=== PATIENT | male | born 1935 | race Caucasian/White ===

== ENCOUNTER → 2016-06-13 | Outpatient (CLI) | payer OTHER ==
--- NOTE | 2016-06-13 12:51 | US ---
Renal Ultrasound June 13, 2016 Indication: 80 year-old man with benign prostatic hypertrophy, urinary retention, and reflux versus o bstructive uropathy. Comparison: Bladder ultrasound dated May 16, 2016. Findings: The urinary bladder contains a Joya catheter balloon and is completely decompressed. The p rostate gland is moderately enlarged measuring 5.7 x 5.0 x 5.1 cm with a total volume of 75 mL. Minimal left pelvocaliectasis. Normal right intrarenal collecting system. No shadowing renal calculi . Right Kidney: 11.6 cm in length x 5.6 x 5.3 cm. Cortical thickness: 1.4 cm. Left Kidney: 11.4 cm in length x 6.6 x 5.2 cm. Cortical thickness: 2.1 cm. Impression: 1. Minimal left pelvocaliectasis may be due to reflux uropathy versus narrowing of the ureteropelvic junction. 2. Normal right renal collecting system. 3. Empty urinary bladder containing Joya catheter balloon.
== END ==
LOC: CIMAGING 10:10
PROVIDERS: ATTEND Physician Assistant Medical
DX: N28.89 Other specified disorders of kidney and ureter (principal)
CPT/HCPCS: 76770-PO

== ENCOUNTER 2016-07-03 08:01 | Day surgery (SDC) | payer OTHER ==
[2016-07-03] MEDS ORDERED: PROPOFOL 200 MG/20 ML VIAL IVP ONE (08:05)
[2016-07-03] MEDS ORDERED: ETOMIDATE 20 MG/10 ML VIAL IVP ONE (08:05)
[2016-07-03] MEDS ORDERED: NS 500 ML IV ONE (08:05)
[2016-07-03] MEDS ORDERED: BENZOCAINE UNIT DOSE SPRAY HURRICAINE MM ONE (08:05)
[2016-07-03] MEDS ORDERED: MIDAZOLAM 2 MG/2 ML VIAL IVP ONE (08:05)
[2016-07-03] MEDS ORDERED: fentaNYL 100 MCG/2 ML INJ IVP ONE (08:05)
--- NOTE | 2016-07-03 08:24 | CPEKG ---
Heart Rate: 74 RR Interval: 811 QRSD Interval: 144 QT Interval: 468 QTC Interval: 520 QRS May: -82 T Wave May: 87 EKG Severity - ABNORMAL ECG - EKG Impression: AFIB/FLUT AND V-PACED COMPLEXES EKG Impression: LEFT BUNDLE BRANCH BLOCK Electronically Signed By: Mikie James 04-Jul-2016 19:22:59
[2016-07-03 09:15] LABS: CARBON DIOXIDE 25 mEq/l (22-31); CHLORIDE 102 mEq/L (97-110); GLOMERULAR FILTRATION RATE > 60; MAGNESIUM 1.6 mg/dL (1.6-2.3); POTASSIUM 4.6 mEq/L (3.5-5.2)
[2016-07-03 09:20] LABS: INR 1.42 (0.83-1.16); PROTIME(PATIENT) 17.3 SEC (12.0-15.0)
[2016-07-03 09:21] LABS: APTT 33.5 SEC (23.0-38.0)
[2016-07-03 09:31] LABS: ANION GAP 12 mEq/L (8-16); CALCIUM 9.4 mg/dL (8.5-10.4); GLUCOSE 347 mg/dL (70-100); SODIUM 139 mEq/L (134-144)
[2016-07-03] MEDS ORDERED: LIDOCAINE 2% 100 MG/5 ML SYR IVP ONE (09:35)
[2016-07-03] MEDS ORDERED: LIDOCAINE 2% 5 ML SDV ONE (09:36)
[2016-07-03] MEDS ORDERED: PROPOFOL 200 MG/20 ML VIAL ONE (09:36)
--- NOTE | 2016-07-03 10:21 | CPEKG ---
Heart Rate: 67 RR Interval: 896 P-R Interval: 192 QRSD Interval: 138 QT Interval: 444 QTC Interval: 469 QRS [place]: 49 T Wave [place]: -79 EKG Severity - ABNORMAL ECG - EKG Impression: ATRIAL-PACED COMPLEXES EKG Impression: VENTRICULAR PREMATURE COMPLEX EKG Impression: RIGHT BUNDLE BRANCH BLOCK EKG Impression: DRAMATIC AND DIFFUSE T WAVE ABNORMALITIES SEEN IN METABOLIC SYNDROMES EKG Impression: ELECTROLYTE DISORDERS AND HYPERTROPHY Electronically Signed By: Mikie James 04-Jul-2016 19:22:48
--- NOTE | 2016-07-03 10:48 | ECHO ---
[id number] + + [address] : : [facility] [address] : : [phone] + + Transesophageal Echocardiographic Report + -----+ :Name: LAUREN CONTRERAS PStudy Date: 07/03/2016 09:14 AM : : Hospital Admission Number: [id number] Location : [facility]: :: 1935 Gender: Male : :Age: 80 yrs Race: WH : :Reason For Study: Eval LV Fx : :History: Pre Cardioversion : + -----+ Doppler Measurements & Calculations MR max melany: 486.4 cm/sec TR max melany: 234.0 cm/sec MR max P.6 mmHg TR max P.9 mmHg RAP systole: 5.0 mmHg RVSP(TR): 26.9 mmHg Left Ventricle The left ventricular ejection fraction is normal. Atria Injection of contrast documented no interatrial shunt. The interatrial septum is intact with no evidence for an atrial septal defect. No thrombus is detected in the left atrial appendage. No left atrial mass or thrombus visualized. Mitral Valve There is moderate mitral regurgitation. Tricuspid Valve There is moderate tricuspid regurgitation. Aortic Valve The aortic valve is trileaflet. Moderate aortic regurgitation. There is an eccentric jet of aortic insufficiency directed against the anterior mitral leaflet. Pulmonic Valve The pulmonic valve is normal in structure and function. Vessels Mild atherosclerotic plaque(s) in the descending aorta. Procedure Informed consent obtained. Sedation was provided by Dr. Diana. KAROL probe was passed without difficulty. No complications. Conclusion A 2D transesophageal echocardiogram with color flow Doppler was performed. Informed consent obtained. Sedation was provided by Dr. Diana. KAROL probe was passed without difficulty. No complications. The left ventricular ejection fraction is normal. Injection of contrast documented no interatrial shunt. The interatrial septum is intact with no evidence for an atrial septal defect. No thrombus is detected in the left atrial appendage. No left atrial mass or thrombus visualized. There is moderate mitral regurgitation. There is moderate tricuspid regurgitation. The aortic valve is trileaflet. Moderate aortic regurgitation. There is an eccentric jet of aortic insufficiency directed against the anterior mitral leaflet. Mild atherosclerotic plaque(s) in the descending aorta. Proceeded with successful elective DC cardioversion. Final Reading Physician: Dr Mona Lewsi electronically signed on 07/03/2016 10:47 AM Ordering Physician: Mona Lewis Performed By: Dr Mona Lewis
--- NOTE | 2016-07-03 12:27 | CPIP ---
[f rep st] INVASIVE CARDIAC PROCEDURE DATE OF PROCEDURE: 07/03/2016 INDICATIONS: Atrial fibrillation. PROCEDURE: Transesophageal echocardiography-guided cardioversion. COMPLICATIONS: None. DESCRIPTION OF PROCEDURE: N.p.o. status was confirmed, informed consent obtained, and timeout perfor med. Pacemaker interrogation confirmed that the patient was in atrial fibrillation. Since he did tate ve a short interruption in Xarelto therapy in early May, we did elect to proceed with KAROL. Plea se see separate KAROL report. In summary, normal biventricular systolic function. Moderate mitral reg urgitation, moderate aortic regurgitation. No intracardiac thrombus. We proceeded with direct current cardioversion. This patient received a single synchronized 200 joul e shock, which converted him from atrial fibrillation to a sensed V paced rhythm. Pacemaker interrog ation was normal. 12-lead EKG is pending. CONCLUSION: Successful transesophageal echocardiography-guided cardioversion. Continue anticoagulat ion. Follow up with Dr. Simms as scheduled. Patient currently in stable condition. /[id number]/MODL
== END 2016-07-03 11:30 | disposition home or self-care (01) ==
LOC: FCATH 08:01
PROVIDERS: ATTEND Internal Medicine Cardiovascular Disease
PROC: 5A2204Z Restoration of Cardiac Rhythm, Single (ICD-10-PCS; principal; 2016-07-03)
PROC: B245ZZ4 Ultrasonography of Left Heart, Transesophageal (ICD-10-PCS; 2016-07-03)
DX: I48.2 Chronic atrial fibrillation (principal); I25.118 Atherosclerotic heart disease of native coronary artery with other forms of angina pectoris; Z95.5 Presence of coronary angioplasty implant and graft; Z95.0 Presence of cardiac pacemaker; Z79.01 Long term (current) use of anticoagulants; I50.9 Heart failure, unspecified; N40.1 Benign prostatic hyperplasia with lower urinary tract symptoms; E11.9 Type 2 diabetes mellitus without complications; Z86.73 Personal history of transient ischemic attack (TIA), and cerebral infarction without residual deficits
CPT/HCPCS: J2001; J2704

== ENCOUNTER 2016-07-23 21:14 | Inpatient (IN) | payer OTHER ==
--- NOTE | 2016-07-23 21:33 | EDPHY ---
H & P Time Seen by Provider: 07/23/16 21:33 HPI/ROS: CHIEF COMPLAINT: High blood sugar HISTORY OF PRESENT ILLNESS: Patient was the at Dr. Baez's office preop for urologic surgery. Had pyelonephritis in May and has dove. He was called at home because his blood sugar was high; Dr. Erazo asked him to come to the ED for evaluation. Patient is scheduled for prostate surgery in 9 days. Drinking more water but also increased dove catheter urine output. No vomiting or diarrhea or fever or chills. REVIEW OF SYSTEMS: Eye: no change in vision ENT: no sore throat Cardiac: no chest pain or syncope Pulmonary: no cough or SOB Abdomen: no vomiting, diarrhea, abdominal pain Musculoskeletal: no back pain Skin: no rash Neuro: no headache Constitutional: no fever : Indwelling catheter A comprehensive 10 point review of systems is otherwise negative aside from elements mentioned in the history of present illness. PAST MEDICAL HISTORY: Includes diabetes, atrial fibrillation on Xarelto, hypertension, coronary disease with my cardial infarction 2005. Prostatic hypertrophy Social history: Here with his daughter, moved from [place] 2 months ago, has not been exercising much as he usually did. General Appearance: Alert and conversant, cooperative. Eyes: No scleral icterus. ENT, Mouth: Normal mucous membranes. Respiratory: Normal respiratory effort, breath sounds equal, lungs are clear to auscultation. Cardiovascular: Regular rate and rhythm. Gastrointestinal: Abdomen is soft and non tender. Dove catheter in place. Neurological: Alert and oriented x3. Normally conversant. Face symmetric, normal movement and sensation in all extremities. Skin: Warm and dry, no rashes. Musculoskeletal: No peripheral edema and no joint swelling. Psychiatric: Not agitated. Emergency Department course/MDM: Labs drawn to include glucose and chemistry. 2127: Glucose resulted 938 but CO2 is 24. Insulin 10 units IV, normal saline 2 L IV, admit for glucose control. Discussed with Dr. Lamas at this time. Additional insulin 10 units IV. Repeat glucose 451 at 2338. Not in DKA. Critical care time spent by me, Dr. Lott, exclusively with the care of this patient was 30 minutes, exclusive of PA or [employer]EL[employer] time and exclusive of separate procedures. The organ system at risk was metabolic and I ordered IV insulin, IV normal saline, multiple diagnostic lab tests, discussion with admitting hospitalist; to stabilize the patient and prevent worsening of the patient's condition. Smoking Status: Never smoked Constitutional: Initial Vital Signs Temperature (C) 36.4 C 07/23/16 21:24 Heart Rate 60 07/23/16 21:24 Respiratory Rate 16 07/23/16 21:24 Blood Pressure 144/69 H 07/23/16 21:24 O2 Sat (%) 93 07/23/16 21:24 O2 Delivery Mode Room Air Allergies/Adverse Reactions: atenolol Allergy (Verified 07/23/16 21:22) Other-Enter Comments Home Medications: Medication Instructions Recorded Dronedarone HCl [Multaq 400 mg (*)] 400 mg PO BIDMEAL 05/15/16 Glimepiride [Amaryl] 4 mg PO DAILY 05/15/16 Rivaroxaban [Xarelto] 20 mg PO DAILY 05/15/16 Valsartan/Hydrochlorothiazide 1 tab PO DAILY 05/15/16 [Valsartan-Hctz 80-12.5 mg Tab] Atorvastatin Calcium [Lipitor 80 80 mg PO HS 05/16/16 mg] Cholecalciferol Vit D3 [Vitamin D3 1,000 units PO DAILY 05/16/16 (*)] Niacin [Niacin 500 mg (*)] 500 mg PO DAILY 05/16/16 metFORMIN HCL [Glucophage 500 mg 500 mg PO BIDMEAL 05/16/16 (*)] Medical Decision Making - Data Points Laboratory Results: Laboratory Results 07/23/16 21:40 07/23/16 21:40 07/23/16 07/23/16 07/23/16 22:25 21:40 21:40 WBC 5.36 10^3/uL 10^3/uL (3.80-9.50) RBC 3.72 10^6/uL L 10^6/uL (4.40-6.38) Hgb 11.5 g/dL L g/dL (13.7-17.5) POC Hgb Hct 34.8 % L % (40.0-51.0) POC Hct MCV 93.5 fL fL (81.5-99.8) MCH 30.9 pg pg (27.9-34.1) MCHC 33.0 g/dL g/dL (32.4-36.7) RDW 13.3 % % (11.5-15.2) Plt Count 231 10^3/uL 10^3/uL (150-400) MPV 11.5 fL fL (8.7-11.7) Neut % (Auto) 64.6 % % (39.3-74.2) Lymph % (Auto) 21.5 % % (15.0-45.0) [place] % (Auto) 11.2 % % (4.5-13.0) Eos % (Auto) 1.7 % % (0.6-7.6) Baso % (Auto) 0.6 % % (0.3-1.7) Nucleat RBC Rel Count 0.0 % % (0.0-0.2) Absolute Neuts (auto) 3.47 10^3/uL 10^3/uL (1.70-6.50) Absolute Lymphs (auto) 1.15 10^3/uL 10^3/uL (1.00-3.00) Absolute Monos (auto) 0.60 10^3/uL 10^3/uL (0.30-0.80) Absolute Eos (auto) 0.09 10^3/uL 10^3/uL (0.03-0.40) Absolute Basos (auto) 0.03 10^3/uL 10^3/uL (0.02-0.10) Absolute Nucleated RBC 0.00 10^3/uL 10^3/uL (0-0.01) Immature Gran % 0.4 % % (0.0-1.1) Immature Gran # 0.02 10^3/uL 10^3/uL (0.00-0.10) VBG pH 7.30 L (7.31-7.42) POC Sodium Sodium 127 mEq/L L mEq/L (134-144) POC Potassium Potassium 5.8 mEq/L H mEq/L (3.5-5.2) POC Chloride Chloride 90 mEq/L L mEq/L (97-110) Carbon Dioxide 24 mEq/l mEq/l (22-31) Anion Gap 13 mEq/L mEq/L (8-16) POC BUN BUN 38 mg/dL H mg/dL (7-23) Creatinine 1.6 mg/dL H mg/dL (0.7-1.3) POC Creatinine Estimated GFR 42 Glucose 938 mg/dL H* mg/dL (70-100) POC Glucose Calcium 9.6 mg/dL mg/dL (8.5-10.4) 07/23/16 21:36 WBC RBC Hgb POC Hgb 12.6 gm/dL L gm/dL (14.5-17.3) Hct POC Hct 37 % L % (42.8-50.6) MCV MCH MCHC RDW Plt Count MPV Neut % (Auto) Lymph % (Auto) [place] % (Auto) Eos % (Auto) Baso % (Auto) Nucleat RBC Rel Count Absolute Neuts (auto) Absolute Lymphs (auto) Absolute Monos (auto) Absolute Eos (auto) Absolute Basos (auto) Absolute Nucleated RBC Immature Gran % Immature Gran # VBG pH POC Sodium 127 mEq/L L mEq/L (134-144) Sodium POC Potassium 5.4 mEq/L H mEq/L (3.3-5.0) Potassium POC Chloride 89 mEq/L L mEq/L (96-108) Chloride Carbon Dioxide Anion Gap POC BUN 38 mg/dL H mg/dL (7-23) BUN Creatinine POC Creatinine 1.6 mg/dL H mg/dL (0.8-1.5) Estimated GFR Glucose POC Glucose > 700 mg/dL H* mg/dL (70-100) Calcium Medications Given: Discontinued Medications Sodium Chloride (Ns) 1,000 mls @ 0 mls/hr IV ONCE ONE PRN Reason: Wide Open Stop: 07/23/16 22:23 Last Admin: 07/23/16 22:35 Dose: 1,000 mls Sodium Chloride (Ns) 1,000 mls @ 0 mls/hr IV ONCE ONE PRN Reason: Wide Open Stop: 07/23/16 22:23 Last Admin: 07/23/16 22:35 Dose: 1,000 mls Insulin Human Regular (Humulin R) 10 unit IVP EDNOW ONE Stop: 07/23/16 22:23 Last Admin: 07/23/16 22:35 Dose: 10 unit Insulin Human Regular (Humulin R) 5 unit IVP ONCE ONE Stop: 07/23/16 23:49 Last Admin: 07/24/16 00:05 Dose: 5 unit Point of Care Test Results: 07/23/16 21:36 POC Sodium 127 L POC Potassium 5.4 H POC Chloride 89 L POC BUN 38 H POC Creatinine 1.6 H POC Glucose > 700 H* Departure - Departure Disposition: [facility] Acute Clinical Impression: Hyperglycemia Condition: Fair
[2016-07-23 21:54] LABS: % IMMATURE GRANULYOCYTES 0.4 % (0.0-1.1); ABSOLUTE IMMATURE GRANULOCYTES 0.02 10^3/uL (0.00-0.10); ADD DIFF? NO; ADD MORPH? NO; ADD SCAN? NO; ATYPICAL LYMPHOCYTE FLAG 10 (0-99); FRAGMENT RBC FLAG 0 (0-99); HEMATOCRIT 34.8 % (40.0-51.0); HEMOGLOBIN 11.5 g/dL (13.7-17.5); LEFT SHIFT FLG 0 (0-99); LIPEMIA HEMOLYSIS FLAG 80 (0-99); MEAN CELL HEMOGLOBIN 30.9 pg (27.9-34.1); MEAN CELL VOLUME 93.5 fL (81.5-99.8); MEAN PLATELET VOLUME 11.5 fL (8.7-11.7); PLATELET CLUMPS FLAG 0 (0-99); PLATELET COUNT 231 10^3/uL (150-400); RED BLOOD CELL COUNT 3.72 10^6/uL (4.40-6.38); RED CELL DISTRIBUTION WIDTH 13.3 % (11.5-15.2)
[2016-07-23 22:07] LABS: ANION GAP 13 mEq/L (8-16); CALCIUM 9.6 mg/dL (8.5-10.4); CARBON DIOXIDE 24 mEq/l (22-31); CHLORIDE 90 mEq/L (97-110); CREATININE 1.6 mg/dL (0.7-1.3); GLOMERULAR FILTRATION RATE 42; POTASSIUM 5.8 mEq/L (3.5-5.2); SODIUM 127 mEq/L (134-144)
[2016-07-23 22:19] LABS: GLUCOSE 938 mg/dL (70-100)
[2016-07-23] MEDS ORDERED: INSULIN REGULAR HUMAN 100 UNIT/ML IVP ONE ×3 (22:22→23:48)
[2016-07-23] MEDS ORDERED: NS 1,000 ML IV ONE ×2 (22:22)
[2016-07-23] MEDS ORDERED: INSULIN GLARGINE 100 UNITS/ML SYRINGE SC SCH (23:55)
[2016-07-24] MEDS ORDERED: ONDANSETRON 4 MG/2 ML VIAL IVP PRN (01:17)
[2016-07-24] MEDS ORDERED: ONDANSETRON DISINTEGRATING 4 MG TAB PO PRN (01:17)
[2016-07-24] MEDS ORDERED: ACETAMINOPHEN 325 MG TAB PO PRN (01:17)
[2016-07-24] MEDS ORDERED: D50W 25 GM/50 ML SYR IVP PRN (01:19)
[2016-07-24] MEDS: NS 1,000 ML IV SCH ×2 (01:52→07:53)
--- NOTE | 2016-07-24 01:57 | GHP ---
[f rep st] HISTORY AND PHYSICAL DATE OF ADMISSION: 07/23/2016 CHIEF COMPLAINT: Abnormal labs. HISTORY OF PRESENT ILLNESS: This is a 80-year-old male who recently moved here from [place]. He h as a history of type 2 diabetes, as well as coronary artery disease. He was admitted in May pyelonephritis, was found to have urinary obstruction and had a urinary catheter placed. He has significant BPH and saw Dr. Baez today for scheduling of laser procedure to address this. He got preoperative labs, and then found out that his sugar was 900 and [facility] Patient states he has been feeling a little bit fatigued and tired over the last several weeks. He states that he does urinate more frequently and empties his bag out probably 4 t imes per night. He states that due to the stress of moving and taking care of his with cari phillips and his health issues that he has not been following diet or exercising, and then over the last fe w weeks, he has not even been measuring his blood sugars. He denies any fevers or chills. No chest pain or shortness of breath. He does have a history of atrial fibrillation, which was cardioverted in June. REVIEW OF SYSTEMS: A 10-point review of systems was negative. PAST MEDICAL HISTORY: 1. Recent pyelonephritis due to Enterobacter cloacae. 2. Urinary retention secondary to BPH. 3. History of coronary artery disease status post stenting. 4. History of atrial fibrillation with recent cardioversion. 5. Hypertension. 6. Type 2 diabetes. MEDICATIONS: Reviewed. SOCIAL HISTORY: No smoking or alcohol, as above. 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 FAMILY HISTORY: Reviewed, noncontributory. PHYSICAL EXAM: VITAL SIGNS: Afebrile, blood pressure is 111/55, heart rate 70, oxygen saturation 9 5% on room air. GENERAL: Patient is well-developed, no apparent distress. HEENT: Nonicteric scle germán. Extraocular movements intact. Moist mucous membranes. NECK: Supple. No thyromegaly. LUNGS : Good effort. Clear to auscultation bilaterally. CARDIOVASCULAR: Regular rate and rhythm. No m urmurs, gallops. ABDOMEN: Positive bowel sounds. Soft, nontender, nondistended. No hepatosplenom egaly. EXTREMITIES: No clubbing, cyanosis, or edema. SKIN: Without rash or . NEUROLOG IC: Alert and oriented x3. Moving all 4 extremities equally. PSYCH: Normal mood and affect. LABORATORY DATA: CBC is essentially normal though has a mild anemia, sodium is 136, potassium 4.1, BUN 33, creatinine 1.6. Initial glucose was 938, came down to 451 with fluid and some insulin. ASSESSMENT/PLAN: This is a 80-year-old male who presented with severe hyperglycemia. 1. Type 2 diabetes with severe hyperglycemia. The patient has no evidence of diabetic ketoacidosis currently. His blood sugars have been coming down pretty well actually with just a small amount of insulin and fluid. At this point, he probably will need insulin. I have started some Lantus at 15 units nightly. Will add sliding scale insulin. Will continue patient on metformin, but probably h old the sulfonylurea if he is going to be on insulin. Most likely, stress of his current situation is contributing to his hyperglycemia, although his hemoglobin A1c during last hospitalization was 9. 2. Atrial fibrillation. Patient is in a sinus rhythm. Will continue his anticoagulation. 3. Recent pyelonephritis. Patient is not endorsing any infectious symptoms. I am hesitant to get a UA in this catheterized patient, as I do not think that infection at this point is the cause of hi s hyperglycemia, although it is possible. Would, however, expect a lot more constitutional symptoms at that point. 4. History of coronary artery disease. This is quiescent. 5. Hypertension. Patient is . Will see what his kidney function is in the morning. 6. Disposition. Patient will be admitted under full admission status. Case discussed with BRYNN hand. Old records reviewed and summarized in the HPI. /[id number]/MODL
[2016-07-24 04:32] VITALS: RESP 16
[2016-07-24 05:26] LABS: % IMMATURE GRANULYOCYTES 0.3 % (0.0-1.1); ABSOLUTE IMMATURE GRANULOCYTES 0.02 10^3/uL (0.00-0.10); ADD DIFF? NO; ADD MORPH? NO; ADD SCAN? NO; ATYPICAL LYMPHOCYTE FLAG 20 (0-99); FRAGMENT RBC FLAG 0 (0-99); HEMATOCRIT 28.9 % (40.0-51.0); LEFT SHIFT FLG 0 (0-99); LIPEMIA HEMOLYSIS FLAG 90 (0-99); MEAN CELL HEMOGLOBIN 31.2 pg (27.9-34.1); MEAN CELL HEMOGLOBIN CONCENTR. 34.6 g/dL (32.4-36.7); MEAN PLATELET VOLUME 11.2 fL (8.7-11.7); PLATELET CLUMPS FLAG 0 (0-99); PLATELET COUNT 202 10^3/uL (150-400); RED BLOOD CELL COUNT 3.21 10^6/uL (4.40-6.38); RED CELL DISTRIBUTION WIDTH 13.1 % (11.5-15.2)
[2016-07-24 05:39] LABS: ALANINE AMINOTRANSFERASE 35 IU/L (21-72); ALBUMIN 3.1 g/dL (3.5-5.0); ALKALINE PHOSPHATASE 68 IU/L (38-126); ANION GAP 8 mEq/L (8-16); ASPARTATE AMINOTRANSFERASE 16 IU/L (17-59); BILIRUBIN,TOTAL 0.4 mg/dL (0.1-1.4); CALCIUM 9.2 mg/dL (8.5-10.4); CARBON DIOXIDE 22 mEq/l (22-31); CHLORIDE 104 mEq/L (97-110); CREATININE 1.1 mg/dL (0.7-1.3); GLOMERULAR FILTRATION RATE > 60; GLUCOSE 278 mg/dL (70-100); POTASSIUM 4.3 mEq/L (3.5-5.2); SODIUM 134 mEq/L (134-144); TOTAL PROTEIN 5.5 g/dL (6.3-8.2)
[2016-07-24] MEDS ORDERED: PNEUMOC 13-VAL CONJ-DIP CRM/PF 0.5 ML SYR IM ONE (07:48)
[2016-07-24] MEDS: INSULIN LISPRO 100 UNIT/ML SC SCH ×2 (07:53→11:59)
[2016-07-24 12:40] VITALS: BP 102/74; PULSE 112; TEMP 100.4; O2SAT 97
--- NOTE | 2016-07-24 13:13 | PDDCSUM ---
Discharge Summary Discharge Summary: Dates of service: 07/24-07/24/16 Discharge diagnosis: # hyperglycemia # type 2 dm # h/o bph, cad, afib, htn Consultations/procedures performed: none Hospital course # hyperglycemia: without true DKA, has been having issues maintaing regular diet and testing his sugars, unclear if compliance also an issue. Most recent A1c of 9. Started on insulin while in house and dc'ed on same, explained that he may be able to resume oral medications in coming 1-2 weeks depending on his improvement, may be so high due to glucose toxicity. Fu with usual doctors. Eager to dc as has an appt with retinal specialist in am, and appt takes a long time # dm2: as above # chronic medical issues: no changes made in home regimen Dc to home f/u with pcp in next 1-2 weeks > 35 min spent in dc of patient, more than half in face to face counseling regarding f/u care plans
[2016-07-24] MEDS ORDERED: DRONEDARONE HCL 400 MG TAB PO SCH (18:00)
[2016-07-24] MEDS ORDERED: metFORMIN HCL 500 MG TAB PO SCH (18:00)
[2016-07-24] MEDS ORDERED: ATORVASTATIN CALCIUM 40 MG TAB PO SCH (21:00)
[2016-07-25] MEDS ORDERED: RIVAROXABAN 20 MG TAB PO SCH (09:00)
[2016-07-25] MEDS ORDERED: CHOLECALCIFEROL VIT D3 1,000 UNITS TAB PO SCH (09:00)
[2016-07-25] MEDS ORDERED: VALSARTAN/HCTZ 80-12.5MG TAB PO SCH (09:00)
[2016-07-25] MEDS ORDERED: GLIMEPIRIDE 2 MG TAB PO SCH (09:00)
[2016-07-25] MEDS ORDERED: NIACIN 500 MG TAB PO SCH (09:00)
== END 2016-07-24 13:21 | disposition home or self-care (01) | DRG 639 ==
LOC: F3N 07-24 01:26
PROVIDERS: ADMIT Internal Medicine; ATTEND Internal Medicine
DX: E11.65 Type 2 diabetes mellitus with hyperglycemia (principal); I48.91 Unspecified atrial fibrillation; Z79.01 Long term (current) use of anticoagulants; N40.1 Benign prostatic hyperplasia with lower urinary tract symptoms; R33.8 Other retention of urine; I10 Essential (primary) hypertension; I25.10 Atherosclerotic heart disease of native coronary artery without angina pectoris; I25.2 Old myocardial infarction; Z95.5 Presence of coronary angioplasty implant and graft
CPT/HCPCS: 82947-QW; 96374; J1815

== ENCOUNTER 2016-08-01 09:59 | Day surgery (SDC) | payer OTHER ==
[~2016-08-01 09:59] MED LIST: ERTAPENEM 1 GM in NS 100 ML IV ONE
[2016-08-01] MEDS ORDERED: LIDOCAINE 1% 5 ML SDV ONE (10:41)
[2016-08-01] MEDS ORDERED: LIDOCAINE 2% 100 MG/5 ML SYR IVP ONE (10:51)
[2016-08-01] MEDS ORDERED: DEXAMETHASONE 4 MG/ML VIAL ONE (10:51)
[2016-08-01] MEDS ORDERED: ONDANSETRON 4 MG/2 ML VIAL ONE (10:51)
[2016-08-01] MEDS ORDERED: fentaNYL 100 MCG/2 ML INJ ONE ×2 (10:52→14:07)
[2016-08-01] MEDS ORDERED: PROPOFOL 200 MG/20 ML VIAL ONE (10:52)
[2016-08-01] MEDS ORDERED: LIDOCAINE 1% 5 ML SDV ID PRN (10:55)
[2016-08-01] MEDS ORDERED: LR 1,000 ML IV ONE (10:55)
[2016-08-01] MEDS ORDERED: MIDAZOLAM 2 MG/2 ML VIAL ONE (12:10)
--- NOTE | 2016-08-01 14:06 | POSTOPPROG ---
Post Op Note Date of Operation: 08/01/16 Surgeon: Levi Baez (# [id number]) Anesthesia: LMA Pre-op Diagnosis: BPH w/ retention Post-op Diagnosis: BPH w/ retention Procedure: Greenlight PVP Findings: See op note Inf/Abcess present in the surg proc area at time of surgery?: No EBL: 50-100 (50 cc) Complications: None Specimen(s): None Text Box - Additional Text Additional Text: Lasing Time - 52:30 Total Energy Used - 389,959 joules
[2016-08-01] MEDS ORDERED: HYDROmorphONE/DILAUDID 1 MG/ML SYR ONE (14:38)
--- NOTE | 2016-08-01 15:07 | GOP ---
DATE OF OPERATION: 08/01/2016 SURGEON: Levi Baez MD ANESTHESIA: Laryngeal mask. PREOPERATIVE DIAGNOSIS: Benign prostatic hypertrophy with urinary retention. POSTOPERATIVE DIAGNOSIS: Benign prostatic hypertrophy with urinary retention. PROCEDURE PERFORMED: GreenLight photo vaporization of the prostate. FINDINGS: SPECIMENS: None. ESTIMATED BLOOD LOSS: 50 cc. INDICATIONS: This gentleman developed urinary retention requiring indwelling catheterization. He p resents for operative management of his significantly enlarged and obstructing prostate. The indica tions for the procedures as well as potential risks and complications were discussed with the patien t preoperatively. He appeared to understand, his questions were answered, and he wished to proceed. Written informed surgical consent was thereafter obtained. DESCRIPTION OF PROCEDURE: The patient was brought to the operating room and administered laryngeal mask anesthesia. He was carefully placed in the dorsal lithotomy position on the cystoscopic table, utilizing Omid stirrups. The existing indwelling Joya catheter was removed. The genital area wa s sterilely prepped with Betadine scrub and paint, then draped in the usual sterile fashion. The [employer] XPS visual obturator with the outer sheath and the 30-degree lens were then inserted. Ante rior urethra was unremarkable. Posterior urethra revealed severe circumferential prostatic enlargem ent secondary to obstruction. There was a large intravesical median lobe which obliterated visualiz ation of the trigone. This median lobe was elevated and enlarged, extending distally to the verumon tanum. There was also significant lateral lobe hypertrophy. The GreenLight XPS laser bridge and fiber were then brought onto the field. Vaporization of the pro state was started with 60 isabel of energy at the level of the bladder neck. I used this energy sett ing to paint the mucosal surface for hemostasis purposes. However, this was not successful. The me kadeem lobe was quite friable and bled easily. This is likely as a result of its large size, but also possibly due, to some extent, from the patient's chronic anticoagulants, which he had stopped prior to surgery. Nonetheless, I continued to vaporize this tissue carefully by increasing the energy to 100 isabel of energy. After addressing the median lobe, I ablated the lateral lobe tissue and exten ded this distally towards the verumontanum with a maximum of 150 isabel of energy. Vaporization was performed circumferentially until capsular fibers were approximated. Care was taken not to vaporize the bladder trigone. It was difficult to identify the location of the ureteral orifices due to the heavily trabeculated nature of the bladder and generalized erythema, in addition to the BPH. Full cystoscopy had been previously performed in the office and was not performed here at the beginning o f the procedure. Near the verumontanum, the lateral lobe adenoma was vaporized with no more than 80 isabel of energy. At the conclusion of the procedure, the prostatic fossa was widely patent, left u reteral orifice was seen, right ureteral orifice location was presumed to be identified and was unha rmed. No vaporization had taken place distal to the verumontanum, and adequate hemostasis was prese nt. The instruments were removed, and a 20-Spanish 3-way Joya catheter inserted with the use of a c atheter guide, and approximately 35 cc of sterile fluid placed in the balloon. The catheter irrigat ed manually, and the return was also completely clear. I decided to maintain continuous bladder irr igation for a short time postoperatively due to the patient's large prostate and his chronic use of anticoagulants. Therefore, this was initiated, as the catheter was also connected to bag drainage. The patient was then awakened, transferred to his bed, then taken to the recovery room. He tolerat ed the procedure well overall. COMPLICATIONS: None. LASING TIME: 52 minutes 30 seconds. TOTAL ENERGY USED: 389,959 joules. DISPOSITION: He was transferred to the recovery room in stable condition. He will be discharged on ce meeting standard criteria, and also ensuring that his urine remains relatively clear off continuo us bladder irrigation. He will be instructed to return to my office on Friday or Friday for Joya removal. /[id number]/MODL
--- NOTE | 2016-08-01 15:41 | SOAPPROG ---
SOAP Progress Note Assessment/Plan: Assessment: Postop urinary retention w/ lack of catheter drainage. Plan: Intraoperative 3-way Joya replaced successfully w/ 2-way 18 Fr. Joya without complication, return of essentially clear-colored urine. Subjective: Called by nursing staff in PACU due to lack of catheter drainage and inability to irrigate the Joya. Pt. was experiencing urine leakage around the catheter. Bladder Scan PVR > 700 cc. Physical Exam - Physical Exam General Appearance: WD/WN, no apparent distress Abdomen: distended (suprapubic) ICD10 Worksheet Patient Problems: Problems Problem Status Onset Hyperglycemia Acute Pelvic contusion Acute Pyelonephritis Acute Severe sepsis Acute
== END 2016-08-01 18:00 | disposition home or self-care (01) ==
LOC: FSGY 09:59
PROVIDERS: ATTEND Specialist
PROC: [UNRECOGNIZED PROCEDURE] (principal; 2016-08-01 11:45)
DX: N40.1 Benign prostatic hyperplasia with lower urinary tract symptoms (principal); R33.8 Other retention of urine; N13.8 Other obstructive and reflux uropathy; I25.10 Atherosclerotic heart disease of native coronary artery without angina pectoris; Z95.5 Presence of coronary angioplasty implant and graft; Z95.0 Presence of cardiac pacemaker; Z79.01 Long term (current) use of anticoagulants; I48.91 Unspecified atrial fibrillation
CPT/HCPCS: J1100; J1170; J1335; J2001; J2250; J2405; J2704; J3010